=== PATIENT | male | born 1980 | race Hispanic/Latino ===

== ENCOUNTER 2021-11-01 11:17 | Emergency (ER) | payer BC ==
[2021-11-01] MEDS ORDERED: Acetaminophen 500 MG TAB ONE (12:45)
== END 2021-11-01 13:35 | disposition home or self-care (01) ==
LOC: ERS 11:17
DX: J06.9 Acute upper respiratory infection, unspecified (principal); Z20.822 Contact with and (suspected) exposure to COVID-19
CPT/HCPCS: 71045; U0003; U0005